=== PATIENT | female | born 1960 | race Caucasian/White ===

== ENCOUNTER 2018-12-20 10:11 | Outpatient (CLI) | payer OTHER | END 2018-12-20 10:21 | disposition home or self-care (01) | LOC: SONOGRAMA 10:11 → MAMO-SONO 10:15 → SONOGRAMA 10:21 | DX: N85.8 Other specified noninflammatory disorders of uterus (principal) ==

== ENCOUNTER 2019-01-10 11:18 | Outpatient (CLI) | payer OTHER | END 2019-01-10 13:25 | disposition home or self-care (01) | LOC: EKG 11:18 | DX: I10 Essential (primary) hypertension (principal) ==

== ENCOUNTER 2019-01-24 06:12 | Day surgery (SDC) | payer OTHER ==
[~2019-01-24 06:12] MED LIST: IRBESARTAN150 MG PO; METOPROLOL ER-1 EAC2 PO
== END 2019-01-24 15:55 | disposition home or self-care (01) ==
LOC: CIR.AMB 06:12
DX: N84.0 Polyp of corpus uteri (principal)